=== PATIENT | female | born 1980 | race African-American/Black ===

== ENCOUNTER 2017-02-15 11:41 | Day surgery (SDC) | payer OTHER ==
[~2017-02-15] VITALS: Ht 160 cm; Wt 91.4 kg
[~2017-02-15 11:41] MED LIST: CLEOCIN HCL300 MG PO; LYRICA 25MG CAP25 MG PO; MULTIPLE VITAMI1 CAP PO; VITAMIN D1000 IU PO; [UNRECOGNIZED DRUG - REMARK]
[2017-02-15 12:15] VITALS: BP 123/84; PULSE 91; TEMP 97.9
[2017-02-15] MEDS ORDERED: NEURONTIN300 MG/CAP PO (12:20)
[2017-02-15] MEDS ORDERED: ZOFRAN ODT8 MG PO (12:20)
[2017-02-15 13:20] VITALS: BP 123/78; PULSE 79
[2017-02-15 13:26] VITALS: BP 132/68; PULSE 89
== END 2017-02-15 13:35 | disposition home or self-care (01) ==
LOC: SDCO 11:41
DX: K30 Functional dyspepsia (principal); Z98.84 Bariatric surgery status
CPT/HCPCS: J2250; J3010; J7030

== ENCOUNTER → 2017-03-20 | Outpatient (CLI) | payer OTHER ==
[~2017-03-20] MED LIST changes: +NEURONTIN300 MG/CAP PO; +ZOFRAN ODT8 MG PO
== END ==
LOC: BHSO 13:21
DX: F43.10 Post-traumatic stress disorder, unspecified (principal)
CPT/HCPCS: 90791-AI

== ENCOUNTER → 2017-03-26 | Outpatient (CLI) | payer OTHER | LOC: BHSO 12:59 | DX: F43.10 Post-traumatic stress disorder, unspecified (principal) ==

== ENCOUNTER → 2017-04-10 | Outpatient (CLI) | payer OTHER | LOC: BHSO 15:13 | DX: F41.1 Generalized anxiety disorder (principal) ==